=== PATIENT | male | born 1990 | race Caucasian/White ===

== ENCOUNTER 2018-03-19 15:22 | Emergency (ER) | payer BC, OTHER ==
[2018-03-19] MEDS: TRIMETHOPRIM/SULFAMETHOX (DS) TAB PO (15:51)
[2018-03-19] MEDS: MUPIROCIN 2% 15 GM CR TOP (15:56)
[2018-03-19] MEDS: CEPHALEXIN 500 MG CAP PO (15:56)
== END 2018-03-19 16:05 | disposition home or self-care (01) ==
LOC: FTE 15:22
DX: L08.9 Local infection of the skin and subcutaneous tissue, unspecified (principal)
CPT/HCPCS: 99284